=== PATIENT | female | born 1960 | race African-American/Black ===

== ENCOUNTER 2018-03-26 13:07 | Emergency (ER) | payer MEDICAID, MEDICARE ==
[2018-03-26] MEDS ORDERED: Cephalexin 250 MG CAP ONE (14:29)
== END 2018-03-26 14:35 | disposition home or self-care (01) ==
LOC: NAV ERS 13:07
DX: L30.9 Dermatitis, unspecified (principal); I10 Essential (primary) hypertension; F32.9 Major depressive disorder, single episode, unspecified; F17.210 Nicotine dependence, cigarettes, uncomplicated
CPT/HCPCS: 99282

== ENCOUNTER 2019-09-14 14:03 | Emergency (ER) | payer MEDICARE, SELFPAY ==
[2019-09-14] MEDS ORDERED: Amlodipine 5 MG TAB ONE (14:56)
== END 2019-09-14 15:05 | disposition home or self-care (01) ==
LOC: NAV ERS 14:03
DX: L30.9 Dermatitis, unspecified (principal); F41.9 Anxiety disorder, unspecified; F32.9 Major depressive disorder, single episode, unspecified; I10 Essential (primary) hypertension; F17.210 Nicotine dependence, cigarettes, uncomplicated
CPT/HCPCS: 99283

== ENCOUNTER 2020-05-26 14:57 | Emergency (ER) | payer SELFPAY | END 2020-05-26 15:42 | disposition home or self-care (01) | LOC: NAV ERS 14:57 | DX: M79.652 Pain in left thigh (principal); I10 Essential (primary) hypertension; F17.210 Nicotine dependence, cigarettes, uncomplicated | CPT/HCPCS: 99281 ==

== ENCOUNTER 2021-07-04 11:18 | Emergency (ER) | payer MEDICARE, SELFPAY | END 2021-07-04 11:50 | disposition home or self-care (01) | LOC: NAV ERS 11:18 | DX: R21 Rash and other nonspecific skin eruption (principal); I10 Essential (primary) hypertension; F17.210 Nicotine dependence, cigarettes, uncomplicated | CPT/HCPCS: 99282 ==